=== PATIENT | female | born 1990 | race Caucasian/White ===

== ENCOUNTER 2018-06-29 20:32 | Emergency (ER) | payer MEDICAID ==
[~2018-06-29] VITALS: Ht 175.3 cm; Wt 136.4 kg
[2018-06-30 01:18] VITALS: BP 107/61
== END 2018-06-30 01:19 | disposition home or self-care (01) ==
LOC: EMS 20:35
DX: R20.0 Anesthesia of skin (principal); R20.2 Paresthesia of skin; F41.9 Anxiety disorder, unspecified; F12.90 Cannabis use, unspecified, uncomplicated; Z88.2 Allergy status to sulfonamides
CPT/HCPCS: 70450